=== PATIENT | male | born 1995 | race Caucasian/White ===

== ENCOUNTER 2018-07-25 23:09 | Emergency (ER) | payer OTHER ==
[~2018-07-25] VITALS: Ht 175.3 cm; Wt 110.7 kg
[2018-07-25 23:15] VITALS: BP 150/90
--- NOTE | 2018-07-25 23:20 | NUR ---
TO LOBBY A/W BED,AMBULATORY
--- NOTE | 2018-07-25 23:49 | NUR ---
PT AMBULATED TO ER BED 11
--- NOTE | 2018-07-26 00:10 | NUR ---
PT BIB SELF FOR EPIGASTRIC PAIN WHEN EATING AND DRINKING SINCE SUNDAY. PT STATES HE HAS BURNING SENSATION AND AND NAUSEA WHEN EATING. PT DENIES C/P AT THIS TIME AND SOB. PT AWAKE AND SITTING IN BED.
[2018-07-26] MEDS ORDERED: PANTOPRAZOLE 40 MG TABEC PO ONE (00:50)
[2018-07-26 01:06] VITALS: BP 138/78
--- NOTE | 2018-07-26 01:06 | NUR ---
Patient discharged with v/s stable. Written and verbal after care instructions given and explained. Patient alert, oriented and verbalized understanding of instructions. Ambulatory with steady gait. All questions addressed prior to discharge. ID band removed. Patient advised to follow up with PMD. Rx of protonix given. Patient educated on indication of medication including possible reaction and side effects. Opportunity to ask questions provided and answered.
== END 2018-07-26 01:06 | disposition home or self-care (01) ==
LOC: MED 23:09
DX: K29.70 Gastritis, unspecified, without bleeding (principal); R03.0 Elevated blood-pressure reading, without diagnosis of hypertension; E03.9 Hypothyroidism, unspecified
CPT/HCPCS: 71045; 93005; 99283; Q0092